=== PATIENT | female | born 1995 | race Two or more races ===

== ENCOUNTER 2025-03-20 20:14 | Outpatient (CLI) | payer OTHER ==
[~2025-03-20] VITALS: Ht 162.6 cm; Wt 80.3 kg
[2025-03-20 19:44] VITALS: BP 118/71; O2SAT 100
[2025-03-20] MEDS ORDERED: 0.9 % SODIUM CHLORIDE 1,000 ML IV SCH (20:30)
[2025-03-20] MEDS ORDERED: PRENATAL TABLE1 EAC1 PO (20:32)
[2025-03-20 20:44] LABS: BASO % 0.4 % (0.1-1.2); EOS # 0.17 (0.04-0.54); EOS % 1.1 % (0.7-7.0); LYMPH # 2.69 (1.18-3.74); LYMPH % 17.8 % (19.3-53.1); MEAN PLATELET VOLUME 8.90 fl (9.4-12.4); MONO # 0.83 (0.24-0.82); MONO % 5.5 % (4.7-12.5); NEUT # 10.94 (1.56-6.13); NEUT % 72.2 % (34.0-71.1); RED CELL DISTRIBUTION WIDTH 12.5 % (11.6-14.4)
[2025-03-20 20:45] LABS: URINE APPEARANCE Clear; URINE BILIRRUBIN Negative (NEGATIVE); URINE BLOOD Negative; URINE COLOR Yellow; URINE GLUCOSE Negative (NEGATIVE); URINE KETONE Negative (NEGATIVE); URINE LEUKOCYTE Negative; URINE NITRATE Negative; URINE PROTEIN Negative (NEGATIVE); URINE UROBILINOGEN 0.2 E.U./dl
[2025-03-20 20:46] LABS: URINE BACTERIA 423.6 uL (0.0-1933); URINE EPITHELIAL CELLS 8.0 uL (0.0-38.8); URINE WBC 7.8 uL (0.0-23.2)
[2025-03-20 21:00] LABS: URINE CAST 0.14 uL (0.0-1.40); URINE RBC 0.7 uL (0.0-20.8)
[2025-03-20 21:33] LABS: ALT/SGPT 27.0 U/L (12-78); AST/SGOT 15.0 U/L (15-37); BILIRUBIN TOTAL 0.3 mg/dL (0.3-1.2); BUN CREA RATIO 16.0 (7.0-25.0); CREATININE SERUM 0.58 mg/dL (0.55-1.02); GFR 122.91; GLOBULINA 3.6 G/DL (2.4-3.5); GLUCOSE FASTING 81.0 mg/dL (65-100); OSMOLALITY SERUM 275.0 MOSM/KG (275-295)
[2025-03-20 23:03] VITALS: BP 112/62
[2025-03-21 03:51] VITALS: BP 106/61
[2025-03-21 07:25] VITALS: BP 107/72
[2025-03-21 09:20] VITALS: BP 107/72
== END 2025-03-21 10:27 | disposition home or self-care (01) ==
LOC: OBS/DEL 20:14
PROVIDERS: ATTEND Obstetrics & Gynecology
DX: O26.893 Other specified pregnancy related conditions, third trimester (principal); R51.9 Headache, unspecified; K21.9 Gastro-esophageal reflux disease without esophagitis; R11.10 Vomiting, unspecified; Z3A.28 28 weeks gestation of pregnancy